=== PATIENT | male | born 1945 | race Caucasian/White ===

== ENCOUNTER → 2023-10-25 | Outpatient (RCR) | payer MEDICARE, BC ==
[~2023-10-25] MED LIST: ALEVE 220MG220 MG PO; ARICEPT10 MG PO; ASPIRIN 81M81 MG/TA2 PO; ASPIRIN E.C. 8181 MG PO; CELEBREX 1100 MG/CAP PO; INDERAL 10MG10 MG PO; NAPROSYN500 MG PO; NORCO 325 MG-7.1 TAB PO; OMEGA-3 1000 MG1 CAP PO; PRAVACHOL10 MG PO; PRINIVIL10 MG PO; TYLENOL EXTRA500 M1 PO; ULTRAM 50MG TAB50 MG PO; ZYRTEC 10MG10 MG PO; ZYRTEC5 MG PO
== END | disposition home or self-care (01) ==
LOC: WSST
DX: G31.84 Mild cognitive impairment of uncertain or unknown etiology (principal); E53.8 Deficiency of other specified B group vitamins